=== PATIENT | female | born 1935 | race Caucasian/White ===

== ENCOUNTER 2016-10-04 10:55 | Emergency (ER) | payer MEDICARE, BC ==
[~2016-10-04] VITALS: Ht 172.7 cm; Wt 65.9 kg
[~2016-10-04 10:55] MED LIST: ASPIRIN 81M81 MG/TA2 PO; CARDI-OMEGA1000 MG PO; CEPHALEXIN250 M1 PO; COUMADIN 5MG5 MG/TAB PO; CRANBERRY1 CAP PO; DITROPAN 5MG TAB5 MG PO; EFFEXOR 50M50 MG/TAB PO; EFFEXOR XR75 MG/CAP PO; LOVENOX 8080 MG/0.8 SQ; PAXIL 20MG20 MG PO; PREDNISONE20 MG PO; PROTONIX 40MG T40 MG PO; RITALIN 5MG5 MG/TAB PO; RITALIN10 MG PO; SYMMETREL100 M1 PO; TOPROL XL 25MG25 MG PO; VITAMIN B11000 MCG/M IM; VITAMIN D1000 IU PO; ZOCOR 10MG10 MG PO
[2016-10-04 10:56] VITALS: TEMP 99.5
[2016-10-04] MEDS ORDERED: COUMADIN 77.5 MG/TAB PO (11:56)
[2016-10-04] MEDS ORDERED: COUMADIN 5MG5 MG/TAB PO (11:56)
[2016-10-04] MEDS ORDERED: FLONASE NASAL S16 GM NS (12:00)
[2016-10-04 12:07] LABS: PH 6 (5-8); SQUAMOUS EPITHELIAL 0-2 /hpf; URINE APPEARANCE Clear; URINE BACTERIA None Seen /hpf; URINE BILIRUBIN Negative (NEGATIVE); URINE BLOOD Negative (NEGATIVE); URINE COLOR Yellow; URINE GLUCOSE Negative (NEGATIVE); URINE KETONE Negative (NEGATIVE); URINE WBC 0-2 /hpf
[2016-10-04 12:11] LABS: BASO % 0.5 % (0.0-2.0); EOS % 0.2 % (0-4.0); HEMATOCRIT 39.1 % (37.0-47.0); HEMOGLOBIN 13.2 g/dl (12.5-16.0); LYMPH # 0.7 (1.2-3.4); LYMPH % 12.6 % (20.0-51.0); MEAN CELL VOLUME 94 fl (80.0-100.0); MEAN CORPUSCULAR HEMOGLOBIN 32 pg (27.0-31.0); MEAN CORPUSCULAR HGB CONC 34 g/dl (33.0-37.0); MEAN PLATELET VOLUME 10.3 fl (7.4-10.4); MONO # 0.7 (0.1-0.6); MONO % 12.3 % (1.7-9.3); PLATELET COUNT 142 K/mm3 (130-400); RED BLOOD COUNT 4.16 M/mm3 (4.10-5.30); REDCELL DISTRIBUTION WIDTH-CV 12.3 % (11.5-14.5); WHITE BLOOD COUNT 5.5 K/mm3 (4.8-10.8)
[2016-10-04 12:16] LABS: ALBUMIN 3.9 gm/dL (3.5-5.0); BILIRUBIN,TOTAL 1.2 mg/dL (0.0-1.0); CALCIUM 8.9 mg/dL (8.4-10.2); CREATININE, serum 0.87 mg/dL (0.52-1.25); POTASSIUM 3.8 mmol/L (3.4-5.0)
[2016-10-04] MEDS ORDERED: ZOCOR 10MG10 MG PO (15:33)
[2016-10-04 15:41] LABS: INR 1.5 (0.8-3.0); PROTHROMBIN TIME 17.2 SECONDS (9.7-12.8)
[2016-10-04 15:44] LABS: PARTIAL THROMBOPLASTIN TIME 35.6 SECONDS (26.0-37.0)
[2016-10-04 16:17] VITALS: BP 101/56; PULSE 91
[2016-10-04] MEDS ORDERED: ZOFRAN ODT4 MG PO (16:36)
[2016-10-04] MEDS ORDERED: PREDNISONE20 MG PO (16:36)
== END 2016-10-04 17:10 | disposition home or self-care (01) ==
LOC: COL.ER 10:55 → MEDICAL 16:00 → COL.ER 17:10
PROVIDERS: Emergency Medicine; Nurse Practitioner
DX: R11.2 Nausea with vomiting, unspecified (principal); R53.1 Weakness; R10.84 Generalized abdominal pain; R19.7 Diarrhea, unspecified; R05 Cough; G35 Multiple sclerosis; J44.9 Chronic obstructive pulmonary disease, unspecified; I48.91 Unspecified atrial fibrillation; Z79.01 Long term (current) use of anticoagulants
CPT/HCPCS: J2405; J7030; J7512; Q9967

== ENCOUNTER → 2017-06-01 | Outpatient (CLI) | payer MEDICARE, BC ==
[~2017-06-01] MED LIST changes: +COUMADIN 77.5 MG/TAB PO; +FLONASE NASAL S16 GM NS; +ZOFRAN ODT4 MG PO
== END ==
LOC: MC.RAD 14:00
DX: Z12.31 Encounter for screening mammogram for malignant neoplasm of breast (principal); R92.0 Mammographic microcalcification found on diagnostic imaging of breast

== ENCOUNTER 2018-05-19 12:43 | Inpatient (IN) | payer MEDICARE, BC ==
[2018-05-19] VITALS (128 sets, daily range): BP systolic 100; BP diastolic 44; PULSE 67; TEMP 98.5; O2SAT 88–99
[~2018-05-19] VITALS: Ht 172.7 cm; Wt 74.0 kg
[~2018-05-19 12:43] MED LIST changes: -COUMADIN 77.5 MG/TAB PO
[2018-05-19 13:15] LABS: BASO # 0.1 (0.0-0.2); BASO % 0.3 % (0.0-2.0); EOS % 0.1 % (0-4.0); GRAN # 12.3 (1.4-6.5); GRAN % 84.8 % (42.2-75.2); HEMATOCRIT 40.8 % (37.0-47.0); HEMOGLOBIN 13.8 g/dl (12.5-16.0); LYMPH # 1.1 (1.2-3.4); LYMPH % 7.3 % (20.0-51.0); MEAN CELL VOLUME 94 fl (80.0-100.0); MEAN CORPUSCULAR HEMOGLOBIN 32 pg (27.0-31.0); MEAN CORPUSCULAR HGB CONC 34 g/dl (33.0-37.0); MEAN PLATELET VOLUME 9.7 fl (7.4-10.4); PLATELET COUNT 176 K/mm3 (130-400); RED BLOOD COUNT 4.34 M/mm3 (4.10-5.30)
[2018-05-19 13:19] LABS: INR 2.2 (0.8-3.0); PROTHROMBIN TIME 25.1 SECONDS (9.7-12.8)
[2018-05-19 13:24] LABS: BILIRUBIN,TOTAL 1.6 mg/dL (0.0-1.0); CALCIUM 9.2 mg/dL (8.4-10.2); CREATININE, serum 0.88 mg/dL (0.52-1.25); POTASSIUM 3.8 mmol/L (3.4-5.0); TOTAL PROTEIN 7.3 gm/dL (6.4-8.2)
[2018-05-19 14:13] LABS: COLLECTION METHOD CATHETER
[2018-05-19 14:33] LABS: PH 6 (5-8); SQUAMOUS EPITHELIAL 0-2 /hpf; URINE APPEARANCE Cloudy; URINE BACTERIA Moderate /hpf; URINE BILIRUBIN Negative (NEGATIVE); URINE BLOOD 2+ (NEGATIVE); URINE COLOR Yellow; URINE GLUCOSE Negative (NEGATIVE); URINE KETONE Negative (NEGATIVE); URINE LEUKOCYTE ESTERASE 2+ (NEGATIVE); URINE NITRATE Positive (NEGATIVE); URINE PROTEIN(semi-quant) 2+ (NEGATIVE); URINE RBC 20-50 /hpf; URINE UROBILINOGEN Negative (NEGATIVE); URINE WBC >50 /hpf
[2018-05-19] MEDS ORDERED: COLACE 100100 MG/CAP PO (16:56)
[2018-05-19] MEDS ORDERED: RITALIN 5MG5 MG/TAB PO (16:57)
[2018-05-19] MEDS ORDERED: TOPROL XL 25MG25 MG PO (16:57)
[2018-05-19] MEDS ORDERED: MIRALAX PA17 GM/Dose PO (16:58)
[2018-05-20] VITALS (304 sets, daily range): BP systolic 93–112; BP diastolic 42–60; PULSE 70–81; TEMP 97.7–98.1; O2SAT 87–97
[2018-05-20 06:23] LABS: BASO % 0.2 % (0.0-2.0); EOS # 0.1 (0.0-0.7); EOS % 0.6 % (0-4.0); GRAN # 8.7 (1.4-6.5); GRAN % 70.8 % (42.2-75.2); HEMOGLOBIN 12.3 g/dl (12.5-16.0); LYMPH # 2.6 (1.2-3.4); MEAN CELL VOLUME 97 fl (80.0-100.0); MEAN CORPUSCULAR HEMOGLOBIN 33 pg (27.0-31.0); MEAN CORPUSCULAR HGB CONC 33 g/dl (33.0-37.0); MEAN PLATELET VOLUME 9.4 fl (7.4-10.4); MONO # 0.9 (0.1-0.6); MONO % 6.9 % (1.7-9.3); PLATELET COUNT 168 K/mm3 (130-400); RED BLOOD COUNT 3.78 M/mm3 (4.10-5.30); REDCELL DISTRIBUTION WIDTH-CV 12.2 % (11.5-14.5)
[2018-05-20 06:35] LABS: CALCIUM 8.3 mg/dL (8.4-10.2); CREATININE, serum 0.78 mg/dL (0.52-1.25); POTASSIUM 3.6 mmol/L (3.4-5.0)
[2018-05-20 06:41] LABS: HEMATOCRIT 36.8 % (37.0-47.0)
[2018-05-20 06:44] LABS: INR 2.1 (0.8-3.0); PROTHROMBIN TIME 23.6 SECONDS (9.7-12.8)
[2018-05-21] VITALS (7 sets, daily range): BP systolic 95–110; BP diastolic 53–63; PULSE 72–81; TEMP 97.1–98.3
[2018-05-21 06:16] LABS: BASO % 0.4 % (0.0-2.0); EOS # 0.2 (0.0-0.7); EOS % 2.1 % (0-4.0); GRAN # 4.3 (1.4-6.5); GRAN % 55.7 % (42.2-75.2); HEMATOCRIT 37.1 % (37.0-47.0); HEMOGLOBIN 12.1 g/dl (12.5-16.0); LYMPH # 2.5 (1.2-3.4); LYMPH % 32.7 % (20.0-51.0); MEAN CELL VOLUME 98 fl (80.0-100.0); MEAN CORPUSCULAR HEMOGLOBIN 32 pg (27.0-31.0); MEAN CORPUSCULAR HGB CONC 33 g/dl (33.0-37.0); MONO # 0.7 (0.1-0.6); MONO % 8.7 % (1.7-9.3); PLATELET COUNT 163 K/mm3 (130-400); RED BLOOD COUNT 3.79 M/mm3 (4.10-5.30); REDCELL DISTRIBUTION WIDTH-CV 12.2 % (11.5-14.5)
[2018-05-21 06:32] LABS: CALCIUM 8.7 mg/dL (8.4-10.2); CREATININE, serum 0.82 mg/dL (0.52-1.25); MAGNESIUM 1.9 mg/dL (1.6-2.3); POTASSIUM 3.8 mmol/L (3.4-5.0)
[2018-05-21 06:56] LABS: THYROID STIMULATING HORMONE 2.24 uIU/mL (0.465-4.680)
[2018-05-22 00:13] VITALS: BP 152/86; PULSE 92; TEMP 98.2
[2018-05-22 04:53] VITALS: BP 104/58; PULSE 76; TEMP 97.8
[2018-05-22 07:12] VITALS: BP 116/56; PULSE 67; TEMP 98
[2018-05-22 07:18] LABS: INR 2.5 (0.8-3.0); PROTHROMBIN TIME 28.8 SECONDS (9.7-12.8)
[2018-05-22 12:00] VITALS: BP 113/41; PULSE 73; TEMP 97.9
[2018-05-22] MEDS ORDERED: CIPRO 500MG TA500 MG PO (14:30)
[2018-05-22 14:47] VITALS: BP 117/65; PULSE 74; TEMP 97.9
== END 2018-05-22 16:15 | DRG 983 ==
LOC: COL.ER 12:43 → MEDICAL 14:59 → ICU 19:10 → MEDICAL 19:10 → ICU 05-20 14:39 → MEDICAL 05-20 14:39
PROVIDERS: Emergency Medicine; Hospitalist; Internal Medicine
PROC: 0JH602Z Insertion of Monitoring Device into Chest Subcutaneous Tissue and Fascia, Open Approach (ICD-10-PCS; principal; 2018-05-22)
DX: N30.00 Acute cystitis without hematuria (principal); G35 Multiple sclerosis; Z66 Do not resuscitate; B96.5 Pseudomonas (aeruginosa) (mallei) (pseudomallei) as the cause of diseases classified elsewhere; I48.0 Paroxysmal atrial fibrillation; Z79.01 Long term (current) use of anticoagulants; J44.9 Chronic obstructive pulmonary disease, unspecified; E78.5 Hyperlipidemia, unspecified; Z87.891 Personal history of nicotine dependence; R00.1 Bradycardia, unspecified; R32 Unspecified urinary incontinence; F32.9 Major depressive disorder, single episode, unspecified; F90.0 Attention-deficit hyperactivity disorder, predominantly inattentive type
CPT/HCPCS: OP; 99232-AI; 99239; C1764; G0378; J0696; J0744; J2405; J7030; J7040

== ENCOUNTER → 2019-01-04 | Outpatient (CLI) | payer MEDICARE, BC ==
[~2019-01-04] MED LIST changes: +CIPRO 500MG TA500 MG PO; +COLACE 100100 MG/CAP PO; +MIRALAX PA17 GM/Dose PO
== END ==
LOC: COL.RAD 13:03
DX: Z01.812 Encounter for preprocedural laboratory examination (principal); G35 Multiple sclerosis; M48.07 Spinal stenosis, lumbosacral region; M54.32 Sciatica, left side; R41.89 Other symptoms and signs involving cognitive functions and awareness
CPT/HCPCS: A9585

== ENCOUNTER 2021-01-30 10:36 | Day surgery (SDC) | payer MEDICARE, BC ==
[~2021-01-30] VITALS: Ht 170.2 cm; Wt 70.5 kg
[2021-01-30] VITALS (7 sets, daily range): BP systolic 86–125; BP diastolic 55–76; PULSE 68–85; TEMP 96.9–97
[~2021-01-30 10:36] MED LIST changes: +PRILOTC PO
[2021-01-30] MEDS ORDERED: COUMADIN 5MG5 MG/TAB PO (11:38)
[2021-01-30] MEDS ORDERED: VITAMIND3 5000 PO (11:39)
[2021-01-30] MEDS ORDERED: LANOXIN 0.120.125 MG PO (11:40)
[2021-01-30] MEDS ORDERED: ARICEPT10 MG PO (11:41)
[2021-01-30] MEDS ORDERED: SYNTHROID 0.0.025 MG PO (11:42)
[2021-01-30] MEDS ORDERED: HIPREX PO (11:42)
[2021-01-30] MEDS ORDERED: TOPROL XL 25MG25 MG PO (11:43)
[2021-01-30] MEDS ORDERED: MIRALAX PA17 GM/Dose PO (11:44)
[2021-01-30] MEDS ORDERED: ONE-A-DAY ESSE1 EACH PO (11:44)
[2021-01-30 11:49] LABS: INR 2.5 (0.8-3.0); PROTHROMBIN TIME 27.9 SECONDS (9.7-12.8)
--- NOTE | 2021-01-30 12:42 | NUR ---
Patient returned to room via cart, transfered to chair with help. Postop vital signs started and 3 lead heart monitior started. Endo nurse reports patient has gone into afib during procedure. Will continue to monitor closely. Patient request water, pudding and crackers. Blood pressure is varying between 79/43 and 92/61. Notified physician and will continue to monitor closely.
--- NOTE | 2021-01-30 13:00 | NUR ---
Patient sitting up in chair. Vital signs taken while physician in room. Physician asked to increase IV fluids and continue to monitor blood pressure. Patient is tolerating food and drink well. Patient is across from nurse station with door open and monitor screen in sight, will continue to monitor.
--- NOTE | 2021-01-30 13:10 | NUR ---
Patient sitting up in chair, denies any discomfort. Vital signs obtained. Will continue to monitor.
--- NOTE | 2021-01-30 13:15 | NUR ---
Patient sitting up comfortable in chair, denies any discomforts or needs. Vital signs obtained. Will continue to monitor continuously.
--- NOTE | 2021-01-30 13:30 | NUR ---
Patient sitting up in bed, denies any discomfort. Vital signs obtained. Will continue to monitor.
--- NOTE | 2021-01-30 13:45 | NUR ---
Patient sitting up in chair, denies any discomfort. Vital signs obtained. Notified physician of vital signs, she confirmed it was ok to discharge patient home. Reviewed discharge instruction and education materials with patient and , both verbalized understanding. Discontinued IV with no complications. Instructed patient to dress with help from and to call nurses station when ready for transportation to vehicle.
--- NOTE | 2021-01-30 14:10 | NUR ---
Transported patient via wheelchair with to persoanal vehicle.
== END 2021-01-30 14:10 | disposition home or self-care (01) ==
LOC: SDCO 10:36
PROVIDERS: Internal Medicine Gastroenterology
DX: K31.7 Polyp of stomach and duodenum (principal); K29.50 Unspecified chronic gastritis without bleeding; K29.80 Duodenitis without bleeding; K26.9 Duodenal ulcer, unspecified as acute or chronic, without hemorrhage or perforation; R63.4 Abnormal weight loss; G20 Parkinson's disease; G35 Multiple sclerosis; M19.90 Unspecified osteoarthritis, unspecified site; G47.30 Sleep apnea, unspecified; I95.9 Hypotension, unspecified; M85.80 Other specified disorders of bone density and structure, unspecified site; I48.0 Paroxysmal atrial fibrillation; J44.9 Chronic obstructive pulmonary disease, unspecified; F32.9 Major depressive disorder, single episode, unspecified; Z79.899 Other long term (current) drug therapy; Z79.82 Long term (current) use of aspirin; Z79.01 Long term (current) use of anticoagulants; Z79.890 Hormone replacement therapy; Z82.3 Family history of stroke; Z95.818 Presence of other cardiac implants and grafts; Z87.891 Personal history of nicotine dependence
CPT/HCPCS: J7120

== ENCOUNTER 2021-08-30 16:10 | Emergency (ER) | payer MEDICARE, BC ==
[~2021-08-30] VITALS: Ht 175.3 cm; Wt 65.9 kg
[~2021-08-30 16:10] MED LIST changes: +ARICEPT10 MG PO; +HIPREX PO; +LANOXIN 0.120.125 MG PO; +ONE-A-DAY ESSE1 EACH PO; +SYNTHROID 0.0.025 MG PO; +VITAMIND3 5000 PO
[2021-08-30 16:58] VITALS: TEMP 98.2
[2021-08-30 19:36] VITALS: BP 133/66; PULSE 57
== END 2021-08-30 19:36 | disposition home or self-care (01) ==
LOC: COL.ER 16:10
DX: S20.211A Contusion of right front wall of thorax, initial encounter (principal); I48.91 Unspecified atrial fibrillation; I10 Essential (primary) hypertension; G20 Parkinson's disease; G35 Multiple sclerosis; J44.9 Chronic obstructive pulmonary disease, unspecified; Z79.899 Other long term (current) drug therapy; Z79.01 Long term (current) use of anticoagulants; Z79.51 Long term (current) use of inhaled steroids; W19.XXXA Unspecified fall, initial encounter; W22.8XXA Striking against or struck by other objects, initial encounter
CPT/HCPCS: A9284

== ENCOUNTER → 2022-04-13 | Outpatient (CLI) | payer MEDICARE, BC | LOC: COL.RAD 12:16 | DX: G31.9 Degenerative disease of nervous system, unspecified (principal); H53.9 Unspecified visual disturbance | CPT/HCPCS: A9575 ==